=== PATIENT | female | born 1955 | race Caucasian/White ===

== ENCOUNTER 2021-12-18 06:20 | Day surgery (SDC) | payer MEDICARE ==
[~2021-12-18] VITALS: Ht 165 cm; Wt 78.0 kg
[~2021-12-18 06:20] MED LIST: BRIN10TA PO; CELEBREX100 MG PO; CETIRIZINE HCL5 MG PO; LISINOPRIL20 MG PO; MYRBETRIQ50 MG PO; PROTONIX 40MG T40 MG PO; VIT E PO; ZETIA10 MG PO; ZINC50 MG PO
[2021-12-18] MEDS ORDERED: EFFEXOR-XR 75 M75 MG PO (15:20)
--- NOTE | 2021-12-18 17:07 | NUR ---
PT. HAD A RTKR THIS DATE. [facility] TO DELIVER A RO[facility]ING WALKER AND PT. REQUESTED [facility] TO HOME FOR THERAPY.
[2021-12-19 05:54] LABS: BASOPHIL 0.5 % (0-2); EOSINOPHIL 3.2 % (0-7); HCT 33.2 % (37.0-47.0); HGB 11.1 g/dl (12.5-16.0); LYMPHOCYTE 18.3 % (15-48); MCH 29.5 pg (25.0-31.0); MCHC 33.4 g/dL (32.0-36.0); MCV 88.3 fL (78.0-100.0); MONOCYTE 10.4 % (0-12); MPV 10.3 fL (6.0-9.5); NEUTROPHIL 67.5 % (41-80); NRBC 0; PLT 226 K/uL (150-400); RBC 3.76 M/uL (4.20-5.40); RDW 13.2 % (11.5-14.0); WBC 7.6 K/uL (4.0-10.5)
[2021-12-19 06:16] LABS: BUN/CREAT RATIO (CALC) 16.4 RATIO; CREATININE 0.67 mg/dL (0.51-0.95); POTASSIUM 4.2 mmol/L (3.5-5.1)
[2021-12-19] MEDS ORDERED: OXYCODONE-ACET1 EAC1 PO (09:09)
[2021-12-19] MEDS ORDERED: XARELTO10 MG PO (09:09)
[2021-12-19] MEDS ORDERED: FEOSOL325 MG PO (09:09)
--- NOTE | 2021-12-19 11:01 | NUR ---
PT DISCHARGED AT 1050AM TRANSPORTED VIA W/C TO FRONT ENTRANCE , PT STABLE UPON DEPARTURE.
== END 2021-12-19 10:50 | disposition home or self-care (01) ==
LOC: FAS 06:20 → FOFB 10:17 → FAS 12-19 10:50
PROVIDERS: Legal Medicine
DX: M17.11 Unilateral primary osteoarthritis, right knee (principal); M21.161 Varus deformity, not elsewhere classified, right knee; G89.18 Other acute postprocedural pain; F32.A Depression, unspecified; K21.9 Gastro-esophageal reflux disease without esophagitis; F17.210 Nicotine dependence, cigarettes, uncomplicated; Z88.1 Allergy status to other antibiotic agents; Z79.899 Other long term (current) drug therapy
CPT/HCPCS: 36415; 73560; 80048; 85025; 86850; 86900; 86901; 94010; 97162; 97166; 97530-GP; 97535; C1713; C1776; J0171; J0697; J1885; J2250; J2270; J2405; J2795; J3010; J7120